=== PATIENT | female | born 1980 | race Caucasian/White ===

== ENCOUNTER 2018-10-25 11:22 | Outpatient (REF) | payer BC, SELFPAY ==
[2018-10-25 21:21] LABS: Abs Immature Grans 0.01 k/cumm (0.0-0.09); Absolute Basophil Count 0.03 k/cumm (0.0-0.2); Absolute Lymphocyte Count 1.65 k/cumm (1.2-3.4); Absolute Monocyte Count 0.65 k/cumm (0.11-0.7); Absolute Neutrophil Count 4.69 k/cumm (1.2-6.7); Basophils % 0.4; Eosinophils % 1.4; HCT 40.5 % (36.0-46.0); HGB 13.5 g/dL (12.0-15.5); Immature Grans % 0.1; Lymphocytes % 23.1; Mean Corp. HGB Concentration 33.3 g/dL (32.0-36.0); Mean Corpuscular Hemoglobin 31.5 pg (27.0-33.0); Mean Corpuscular Volume 94.4 fL (80-95); Mean Platelet Volume 13.7 fL (8.0-11.0); Monocytes % 9.1; Neutrophils % 65.9; Platelet Count 148 x1000/uL (130-400); RBC 4.29 m/cumm (4.00-5.20); White Blood Cell Count 7.13 k/cumm (4.4-10.8)
[2018-10-25 21:32] LABS: Iron 134 ug/dL (50-175); Total Iron Binding Capacity 362 ug/dL (250-450); Transferrin Sat 37 % (15-50)
[2018-10-25 21:58] LABS: ALT 16 U/L (12-78); AST 13 U/L (15-37); Albumin 4.1 g/dL (3.4-5.0); Alkaline Phosphatase 69 U/L (46-116); Anion Gap 8.9 mmol/L (3-11); BUN 16 mg/dL (7-18); Bilirubin, Total 0.4 mg/dL (0.2-1.0); CO2 27.1 mmol/L (21.0-32.0); CREATININE 0.98 mg/dL (0.55-1.02); Calcium 9.3 mg/dL (8.5-10.1); Chloride 104 mmol/L (98-107); Ferritin 41 ng/mL (8-388); Glucose 101 mg/dL (70-100); Potassium 4.2 mmol/L (3.5-5.1); Sodium 140 mmol/L (136-145); TSH (W/Ref FT4) 4.47 uIU/mL (0.358-3.74); Total Protein 7.7 g/dL (6.4-8.2)
[2018-10-25 22:19] LABS: C-Reactive Protein 0.08 mg/dL (0.0-0.3); FREE T4 1.06 ng/dL (0.76-1.46)
[2018-10-25 22:21] LABS: ESR 9 MM/HR (0-20)
[2018-10-27 13:05] LABS: Levetiracetam 27.1 mcg/mL
== END 2018-10-25 11:42 ==
LOC: NCHCN 11:22
PROVIDERS: PCP Obstetrics & Gynecology; Visit Provider Nurse Practitioner
DX: R10.33 Periumbilical pain (principal); E03.9 Hypothyroidism, unspecified; Z51.81 Encounter for therapeutic drug level monitoring; M53.3 Sacrococcygeal disorders, not elsewhere classified
CPT/HCPCS: 80053; 85652; 80177; 82728; 83540; 83550; 84439; 84443; 85025; 86140; 87086

== ENCOUNTER 2018-10-29 01:42 | Outpatient (CLI) | payer BC, SELFPAY ==
--- NOTE | 2018-10-29 08:45 | DI.US_ITS ---
SYMPTOM/DIAGNOSIS: PERIUMBILICAL ABD PAIN, R10.33 ABDOMEN ULTRASOUND: The liver is normal in size and echogenicity. No biliary dilatation is seen. The gallbladder has a normal appearance, without evidence of stones or wall thickening. The spleen, kidneys, pancreas and aorta are unremarkable. There is no ascites. IMPRESSION: Negative abdomen ultrasound.
== END 2018-10-29 02:02 ==
PROVIDERS: PCP Obstetrics & Gynecology; Visit Provider Nurse Practitioner
DX: R10.33 Periumbilical pain (principal)
CPT/HCPCS: 76700

== ENCOUNTER 2018-11-30 11:19 | Outpatient (REF) | payer BC, SELFPAY ==
[2018-11-30 21:20] LABS: Cholesterol 200 mg/dL (50-200); HDL Cholesterol 65 mg/dL (40-60); LDL CHOLESTEROL 116 mg/dL (<100); Triglyceride 79 mg/dL (30-150)
== END 2018-11-30 11:39 ==
LOC: NCHCN 11:19
PROVIDERS: PCP Obstetrics & Gynecology; Visit Provider Nurse Practitioner Family
DX: R51 Headache (principal); L98.9 Disorder of the skin and subcutaneous tissue, unspecified; M53.3 Sacrococcygeal disorders, not elsewhere classified; N92.6 Irregular menstruation, unspecified; F32.9 Major depressive disorder, single episode, unspecified; E03.9 Hypothyroidism, unspecified; G40.909 Epilepsy, unspecified, not intractable, without status epilepticus; Z00.00 Encounter for general adult medical examination without abnormal findings
CPT/HCPCS: 80061; 83721; 84443

== ENCOUNTER 2020-11-18 02:07 | Outpatient (CLI) | payer BC, SELFPAY ==
--- NOTE | 2020-11-18 13:26 | DI.RAD_ITS ---
EXAM: XR FOOT LT COMPLETE CLINICAL HISTORY: LT FOOT PAIN, M79.672. TECHNIQUE: 2D digital imaging was performed. COMPARISON: No exams were available for comparison FINDINGS: BONES: No acute fracture is present. No bony destructive lesion is seen. JOINTS: No dislocation present. SOFT TISSUE: Normal. IMPRESSION: Unremarkable radiographs of the left foot. DATA REPOSITORY: RADIATION DOSE DELIVERED:
== END 2020-11-18 02:08 | disposition home or self-care (01) ==
LOC: DI 02:07
PROVIDERS: PCP Obstetrics & Gynecology; Visit Provider Nurse Practitioner Family
DX: M79.672 Pain in left foot (principal)
CPT/HCPCS: 73630

== ENCOUNTER 2020-11-30 15:40 | Outpatient (REF) | payer BC, SELFPAY ==
[2020-11-30 21:15] LABS: TSH (W/Ref FT4) 3.45 uIU/mL (0.36-3.74)
[2020-12-03 10:05] LABS: Levetiracetam 16.1 mcg/mL
== END 2020-11-30 15:41 | disposition home or self-care (01) ==
LOC: NCHCN 15:40
PROVIDERS: PCP Obstetrics & Gynecology; Visit Provider Nurse Practitioner Family
DX: E03.9 Hypothyroidism, unspecified (principal); F32.9 Major depressive disorder, single episode, unspecified; Z51.81 Encounter for therapeutic drug level monitoring; R51.9 Headache, unspecified; Z00.00 Encounter for general adult medical examination without abnormal findings; G40.909 Epilepsy, unspecified, not intractable, without status epilepticus
CPT/HCPCS: 80177; 80178; 84443

== ENCOUNTER 2021-01-20 22:17 | Outpatient (REF) | payer BC, SELFPAY ==
[2021-01-22 16:33] LABS: COVID-19 RT-PCR UVMMC Result Negative (Negative)
== END 2021-01-20 22:18 | disposition home or self-care (01) ==
LOC: NCHCN 22:17
PROVIDERS: PCP Obstetrics & Gynecology; Visit Provider Nurse Practitioner Family
DX: Z20.822 Contact with and (suspected) exposure to COVID-19 (principal)
CPT/HCPCS: U0003

== ENCOUNTER 2021-10-07 17:39 | Outpatient (REF) | payer BC, SELFPAY ==
[2021-10-07 21:43] LABS: Abs Immature Grans 0.01 10^3/uL (0.0-0.06); Absolute Basophil Count 0.05 10^3/uL (0.0-0.2); Absolute Monocyte Count 0.42 10^3/uL (0.1-0.8); Absolute Neutrophil Count 3.67 10^3/uL (1.2-6.7); Basophils % 0.9; Eosinophils % 1.7; HCT 41.5 % (36.0-46.0); HGB 13.6 g/dL (11.2-15.7); Immature Grans % 0.2; Lymphocytes % 27.4; MCH 31.1 pg (27.0-33.0); MCHC 32.8 % (32.0-36.0); MCV 94.7 fL (80-95); Monocytes % 7.2; Neutrophils % 62.6; Nucleated RBC 0 %; Platelet Count 191 10^3/uL (130-400); RBC 4.38 10^6/uL (3.93-5.22); RDW 11.9 % (11.7-14.6); RDW-SD 41.1 fL; WBC 5.85 10^3/uL (4.4-10.8)
[2021-10-07 21:48] LABS: Iron 96 ug/dL (50-170); Total Iron Binding Capacity 363 ug/dL (250-450); Transferrin Sat 26 % (15-50)
[2021-10-07 22:14] LABS: Anion Gap 8.5 mmol/L (3-11); BUN 14 mg/dL (7-18); CO2 30.5 mmol/L (21.0-32.0); Calcium 9.3 mg/dL (8.5-10.1); Chloride 102 mmol/L (98-107); Ferritin 43 ng/mL (8-252); Glucose 120 mg/dL (74-106); Potassium 3.6 mmol/L (3.5-5.1); Sodium 141 mmol/L (136-145); TSH (W/Ref FT4) 1.58 uIU/mL (0.36-3.74); Vitamin B12 933 pg/mL (193-986)
== END 2021-10-07 17:40 | disposition home or self-care (01) ==
LOC: NCHCN 17:39
PROVIDERS: PCP Obstetrics & Gynecology; Visit Provider Nurse Practitioner Family
DX: R53.83 Other fatigue (principal)
CPT/HCPCS: 80048; 82607; 82728; 83540; 83550; 84443; 85025

== ENCOUNTER 2021-12-06 11:57 | Outpatient (REF) | payer BC, SELFPAY ==
--- NOTE | 2021-12-06 11:00 | PAPFT_PTH ---
PATIENT: Zenaida Loo LOC: [facility]#:[id number] AGE/SX: 41/F ROOM: RE12/06/[address]: Angella Mcdonough : 1980 BED: DIS: 12/06/2021 SPEC #: [id number] RECD: 12/06/21 17:28 STATUS: INDRA REJohn #: [id number] AMANDA: 12/06/21 11:[address]: Angella Mcdonough DEPT: [facility] Cytology RECD BY: Lauren Mcfadden ENTERED: 12/06/21 17:29 SP TYPE: PAPFT LEXA DR: Tanisha Gates Tissues: 1 - CX/ENDOCX FOR PAP SMEARS Procedures: PAP THIN PREP/[facility] Screening HPV DNA PROBE Comments: [id number]
[2021-12-08 12:09] LABS: Levetiracetam 30.2 mcg/mL
== END 2021-12-06 11:58 | disposition home or self-care (01) ==
LOC: NCHCN 11:57
PROVIDERS: PCP Obstetrics & Gynecology; Visit Provider Nurse Practitioner Family
DX: Z00.00 Encounter for general adult medical examination without abnormal findings (principal); E03.9 Hypothyroidism, unspecified; R53.83 Other fatigue; F32.9 Major depressive disorder, single episode, unspecified; K30 Functional dyspepsia; G40.909 Epilepsy, unspecified, not intractable, without status epilepticus; Z12.4 Encounter for screening for malignant neoplasm of cervix; Z11.51 Encounter for screening for human papillomavirus (HPV)
CPT/HCPCS: 88142; 80177; 87624

== ENCOUNTER 2022-10-27 04:06 | Outpatient (CLI) | payer BC, SELFPAY ==
[2022-10-27 13:53] LABS: TSH (W/Ref FT4) 3.73 uIU/mL (0.36-3.74)
[2022-10-28 23:06] LABS: Almond IgE <0.35 kU/L; Brazil Nut IgE <0.35 kU/L; Cashew IgE <0.35 kU/L; Walnut-Food IgE <0.35 kU/L
[2022-10-29 11:26] LABS: Levetiracetam 25.4 mcg/mL
== END 2022-10-27 04:07 | disposition home or self-care (01) ==
LOC: LBO 04:06
PROVIDERS: Physician Assistant; PCP Nurse Practitioner Family; Visit Provider Nurse Practitioner Family
DX: R53.83 Other fatigue (principal); R51.9 Headache, unspecified; F32.89 Other specified depressive episodes; E03.9 Hypothyroidism, unspecified; G40.909 Epilepsy, unspecified, not intractable, without status epilepticus; Z51.81 Encounter for therapeutic drug level monitoring; Z79.899 Other long term (current) drug therapy; Z91.018 Allergy to other foods
CPT/HCPCS: 36415; 86003; 80177; 84443

== ENCOUNTER 2023-01-20 15:44 | Outpatient (REF) | payer BC, SELFPAY ==
[2023-01-21 11:33] LABS: Campylobacter PCR Negative (Negative); Salmonella PCR Negative (Negative); Shiga Toxin PCR Negative (Negative); Shigella/Enteroinvasive Ecoli Negative (Negative)
== END 2023-01-20 15:45 | disposition home or self-care (01) ==
LOC: NCHCN 15:44
PROVIDERS: PCP Nurse Practitioner Family; Visit Provider Nurse Practitioner Family
DX: R19.7 Diarrhea, unspecified (principal)
CPT/HCPCS: 87505

== ENCOUNTER 2023-02-03 15:25 | Outpatient (REF) | payer BC, SELFPAY | END 2023-02-03 15:26 | disposition home or self-care (01) | LOC: LBN 15:25 | PROVIDERS: PCP Nurse Practitioner Family; Visit Provider Physician Assistant Medical | DX: H60.91 Unspecified otitis externa, right ear (principal) | CPT/HCPCS: 87077; 87107; 87070; 87186 ==

== ENCOUNTER 2023-11-13 15:12 | Outpatient (REF) | payer BC, SELFPAY ==
[2023-11-13 15:42] LABS: TSH (W/Ref FT4) 1.68 uIU/mL (0.36-3.74)
== END 2023-11-13 15:13 | disposition home or self-care (01) ==
LOC: NCHCN 15:12
PROVIDERS: PCP Nurse Practitioner Family; Visit Provider Nurse Practitioner Family
DX: E03.9 Hypothyroidism, unspecified (principal)
CPT/HCPCS: 84443

== ENCOUNTER → 2023-11-28 01:30 | Outpatient (CLI) | payer BC, SELFPAY ==
--- NOTE | 2023-11-28 | DI.MAMMO_ITS ---
Exam(s) MAMMO SCREENING EXAM: MAMMO SCREENING CLINICAL HISTORY: SCREENING,Z12.31 TECHNIQUE: Bilateral full field digital CC and MLO mammographic images were obtained with 3D tomosyn thesis and utilizing computer aided detection (CAD). COMPARISON: This is a baseline examination. FINDINGS: Masses/Architectural Distortion: None seen. Microcalcifications: No suspicious pleomorphic-type are seen. Skin Thickening/Nipple Retraction: None. IMPRESSION: 1. No significant interval change with no specific features of malignancy noted. 2. Unless there is more urgent need, screening mammography is recommended, as per [employer] guidelines. BI-RADS Category 1 - Negative Breast Density - Category C - Heterogeneously dense Breast density category C or D implies that the patient has dense breast tissue. Dense breast tissue is very common and is not abnormal but dense breast tissue can make it harder to find cancer on a ma mmogram. Also, dense breast tissue may increase their breast cancer risk. This information about the result of the mammogram report was provided to the patient to raise their awareness. Use this report when you speak with the patient about their risks for breast cancer, which includes their family hist ory. At that time, you may recommend for more screening tests (Ultrasound or MRI) as they might be us eful based on their risk. A negative radiographic report should not delay biopsy if a dominant or clinically suspicious mass is present. Up to ten percent of cancers are not identified on mammography. A negative report may reinforce clinical impression. Adenosis and dense breasts may obscure an underlying neoplasm. False positive reports average 6 to 10%. Patient will receive a letter notifying them of these results.
== END ==
PROVIDERS: PCP Nurse Practitioner Family; Visit Provider Nurse Practitioner Family
DX: Z12.31 Encounter for screening mammogram for malignant neoplasm of breast (principal)
CPT/HCPCS: 77063; 77067

== ENCOUNTER 2024-04-08 15:29 | Outpatient (CLI) | payer BC, SELFPAY ==
--- NOTE | 2024-04-08 15:15 | DI.RAD_ITS ---
Exam(s) XR WRIST LT COMPLETE EXAM: XR WRIST LT COMPLETE CLINICAL HISTORY: BILATERAL WRIST PAIN. TECHNIQUE: 2D digital imaging was performed of the left wrist. Three images were obtained. PA, obl ique and lateral views were obtained. COMPARISON: No exams were available for comparison FINDINGS: BONES: No acute fracture is present. No bony destructive lesion is seen. JOINTS: The carpal bones are normally aligned. SOFT TISSUE: Normal. IMPRESSION: Unremarkable radiographs of the left wrist. DATA REPOSITORY: RADIATION DOSE DELIVERED:
--- NOTE | 2024-04-08 15:15 | DI.RAD_ITS ---
Exam(s) XR WRIST RT COMPLETE EXAM: XR WRIST RT COMPLETE CLINICAL HISTORY: BILATERAL WRIST PAIN. TECHNIQUE: 2D digital imaging was performed of the right wrist. Three views were obtained. PA, lat eral and oblique views were obtained. COMPARISON: No exams were available for comparison FINDINGS: BONES: No acute fracture is present. No bony destructive lesion is seen. JOINTS: The carpal bones are normally aligned. SOFT TISSUE: Normal. IMPRESSION: Unremarkable radiographs of the right wrist. DATA REPOSITORY: RADIATION DOSE DELIVERED:
== END 2024-04-08 15:30 | disposition home or self-care (01) ==
LOC: DIORS 15:29
PROVIDERS: PCP Nurse Practitioner Family; Referring Provider Nurse Practitioner Family; Visit Provider Student in an Organized Health Care Education/Training Program
DX: M25.531 Pain in right wrist (principal); M25.532 Pain in left wrist
CPT/HCPCS: 73110

== ENCOUNTER 2024-07-12 07:11 | Day surgery (SDC) | payer BC, SELFPAY ==
[2024-07-12 07:37] VITALS: BP 102/67; PULSE 111; RESP 18; TEMP 36.5; O2SAT 100
[2024-07-12] MEDS: Lactated Ringers 1,000 ML 80 ML IV (07:54)
--- NOTE | 2024-07-12 08:18 | W.ANESPRE ---
General Info Date of Service Date Performed: 07/12/24 Height: 5 ft 4 in Weight: 68.8 kg Body Mass Index (BMI): 26.0 Surgical Procedure: Operation Date: 07/12/24 08:35 Proposed Procedure Side Surgeon p Colonoscopy Nancy CORMIER MD Actual Procedure Side Surgeon p Colonoscopy Not Applicable Nancy CORMIER MD Pre-Op Diagnosis Post-Op Diagnosis Screening/Average Risk Colonoscopy Meds Allergies and Home Medications Allergies Allergy/AdvReac Type Severity Reaction Status Date / Time No Known Allergies Allergy Verified 07/12/24 07:33 Home Medication ?Medication ?Instructions ?Recorded levetiracetam 750 mg tablet 750 mg PO BID 03/26/14 (Keppra) levothyroxine 50 mcg tablet 88 mcg PO DAILY 06/13/24 bisacodyl 5 mg tablet,delayed 5 mg PO ONCE Colonoscopy Bowel 07/05/24 release Prep #4 tabs polyethylene glycol 3350 17 238 g PO ONCE #238 grams 07/05/24 gram/dose oral powder Current Visit Medications: Current Medications Generic Name Dose Route Start Last Admin Trade Name Lopez PRN Reason Stop Dose Admin Ringer's Solution 1,000 mls @ 80 mls/hr 07/12/24 06:00 07/12/24 07:54 IV 07/12/24 23:59 80 mls/hr INFUSION JEAN PIERRE Administration IV Miscellaneous Supplies 1 each 07/12/24 06:00 Iv Access IV 07/12/24 23:59 DIRECTED JEAN PIERRE Sodium Chloride 0 ml 07/12/24 06:00 Normal Saline Flush 10 Ml Syr IV 07/12/24 23:59 PRN PRN Sodium Chloride 0 ml 07/12/24 06:00 Normal Saline 10 Ml Vial IJ 07/12/24 23:59 DIRECTED PRN Sterile Water 0 ml 07/12/24 06:00 Water,Injection,Sterile 10 Ml Vial IJ 07/12/24 23:59 DIRECTED PRN PFSH Active Problems Active Problems: Problem Status Onset Code 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 tonsillectomy age 20 b. wisdom tooth extraction Tobacco Smoking/Tobacco Use Status: Never Alcohol Alcohol Intake: current Alcohol intake frequency: a few times a week Substance Use Substance use: Never Substance use type: does not use Vital Signs and Lab Results Vital Signs Most Recent Vital Signs in EMR: Most Recent Vital Signs Temp Pulse Resp BP Pulse Ox 36.5 C 111 H 18 102/67 100 07/12/24 07:37 07/12/24 07:37 07/12/24 07:37 07/12/24 07:37 07/12/24 07:37 Point of Care Results Point of Care Results: Negative Urine Lab Results Blood Type / Crossmatch: No Data to Display Complete Blood Count: No Data to Display Complete Metabolic Panel: No Data to Display Liver Function Panel: No Data to Display Coagulation Panel: No Data to Display Cardiac Panel: No Data to Display Arterial Blood Gas: No Data to Display Venous Blood Gas: No Data to Display Pancreas Panel: No Data to Display Thyroid Panel: No Data to Display Infectious Disease: No Data to Display Blood Cultures: No Data to Display Toxicology Panel: No Data to Display Panel: No Data to Display Anesthesia Assessment and Plan Anesthesia History Personal History: No History of Anesthesia Complications Family History: No Family History of Anesthesia Complications Exercise Tolerance Exercise Tolerance: Metabolic Equivalents>4 Pertinent Negatives Pertinent Negatives: No Symptoms of GERD, No Major Cardiovascular Symptoms or Complaints and No Major Pulmonary Symptoms or Complaints Cardiac & Pulmonary Exam Cardiac Exam: Normal S1/S2 Heart Sounds Pulmonary Exam: Clear Bilateral Breath Sounds Implantable Cardiac Device Does patient have a Pacemaker or an ICD?: No Airway Exam Known Difficult Airway: No Mallampati Class: 2 Mouth Opening: Normal (> 3cm) Thyromental Distance: Greater than 3 cm Neck Range of Motion: Full ROM Neck Circumference: Normal Teeth Condition: Normal Dentition ASA Classification ASA Score: ASA 2 Emergency Case?: No NPO Status NPO Status: NPO Clears >2 hours, Solids >8 hours Status Status: Negative HCG Anesthesia Plan Resuscitation Status: Full Code Anesthesia Technique: General Anesthesia Airway Planned: Natural Airway Monitors Used: Standard Monitors
[2024-07-12 08:19] VITALS: BMI 26.0
[2024-07-12 08:56] VITALS: BP 103/68; PULSE 91; RESP 16; TEMP 36.4; O2SAT 100
--- NOTE | 2024-07-12 08:56 | ROE_ITS ---
Date of service: 07/12/24 Time of Service: 08:56 Operative Note Operative Note PRE-OP DIAGNOSIS: Colon cancer screening POST-OP DIAGNOSIS: same Colon polyp SURGEON: Nancy CORMIER ANESTHESIA TYPE: MAC Refer to Anesthesia Record PATHOLOGY: other (Ascending colon polyp) COMPLICATIONS: None Patient was transported to: PACU Patient's condition: stable Findings: 1 subcentimeter polyp Procedure Description: After obtaining informed consent, patient was brought back to the operating room. She was turned in the left side and connected to the monitors. Timeout was performed. Propofol was administered by the nurse bulk truck driver. I began by performing a digital rectal exam. This was unremarkable. I inserted the colonoscope and advanced the length of the colon. I attained the cecum as identified by the appendiceal orifice and the ileocecal valve. I intubated the terminal ileum. This had a normal appearance. I withdrew into the cecum. Her prep was good. The cecum had a normal appearance. I withdrew along the descending colon and found a 5 mm sessile polyp. I remove the polyp with the hot snare. This was retrieved with suction and sent to pathology. I withdrew along the transverse colon, descending colon, sigmoid colon. No mucosal abnormalities were noted. No diverticula were noted. I withdrew into the rectum. I did retroflex. This was unremarkable. I decompressed the sigmoid and the rectum and withdrew the scope entirely. Patient tolerated well. She went to recovery in stable condition. Disposition: Patient will be discharged home later today. We will call her with the pathology report. She will likely need a repeat colonoscopy in 5 to 7 years, pending pathology.
--- NOTE | 2024-07-12 09:09 | W.ANESPOSTOP ---
Postoperative Evaluation Date, Time and Location Date Performed: 07/12/24 Time Performed: 09:09 Patient Location: Day Surgery Unit Vital Signs Most Recent Imported Vital Signs: Most Recent Vital Signs Temp Pulse Resp BP Pulse Ox 36.4 C L 91 H 16 103/68 100 07/12/24 08:56 07/12/24 08:56 07/12/24 08:56 07/12/24 08:56 07/12/24 08:56 Pain Score Most Recent Pain Score: Most Recent Pain Score Pain Level 0 07/12/24 08:56 Assessment Mental Status: Awake (Alert & Oriented to Patient Baseline) Airway and Respiratory Function: Patent airway with normal (patient baseline) respiratory exam Cardiovascular Function: Hemodynamically Stable Hydration Status: Adequately Hydrated Nausea & Vomiting: No Nausea or Vomiting Pain: Pt. Denies Any Pain Peripheral Nerve Block: Patient did not receive a nerve block
[2024-07-12 09:26] VITALS: BP 104/60; PULSE 77; RESP 16; TEMP 36.6; O2SAT 100
== END 2024-07-12 09:32 | disposition home or self-care (01) ==
PROVIDERS: PCP Nurse Practitioner Family; Visit Provider Surgery
PROC: 0DJD8ZZ Inspection of Lower Intestinal Tract, Via Natural or Artificial Opening Endoscopic (ICD-10-PCS; CPT 45378; principal; 2024-07-12 08:30)
DX: Z12.11 Encounter for screening for malignant neoplasm of colon (principal); K63.89 Other specified diseases of intestine
CPT/HCPCS: 45385; 00123; 81025; 88305; J2704

== ENCOUNTER 2024-11-28 09:51 | Outpatient (REF) | payer BC, SELFPAY ==
[2024-11-28 23:28] LABS: Calculated LDL 137 mg/dL (<100); Cholesterol 216 mg/dL (<200); HDL Cholesterol 62 mg/dL (40-60); TSH (W/Ref FT4) 2.05 uIU/mL (0.36-3.74); Triglyceride 88 mg/dL (<150)
== END 2024-11-28 09:52 | disposition home or self-care (01) ==
LOC: NCHCN 09:51
PROVIDERS: PCP Nurse Practitioner Family; Visit Provider Nurse Practitioner Family
DX: G40.909 Epilepsy, unspecified, not intractable, without status epilepticus (principal); E03.9 Hypothyroidism, unspecified; Z13.220 Encounter for screening for lipoid disorders
CPT/HCPCS: 80061; 80177; 84443

== ENCOUNTER 2024-12-19 01:44 | Outpatient (CLI) | payer BC, SELFPAY ==
--- NOTE | 2024-12-19 14:16 | DI.MAMMO_ITS ---
Exam(s) MAMMO SCREENING EXAM: MAMMO SCREENING CLINICAL HISTORY: Z12.31 Screening. TECHNIQUE: Bilateral full field digital CC and MLO mammographic images were obtained with 3D tomosyn thesis and utilizing computer aided detection (CAD). COMPARISON: Prior baseline mammogram of November 2023 was reviewed.. FINDINGS: The fibroglandular tissue is again noted be dense, this somewhat decreasing the sensitivity of the ma mmogram for finding hidden underlying lesions. There are no CAD designations. No new right breast findings. In the left breast there is a anteriorly located 6 o'clock position well-defined oval noncalcified no dule measuring 4 x 3 mm. There are no malignant-appearing microcalcification groups is region or els ewhere in either breast. There is no significant architectural distortion nor skin thickening-retraction. IMPRESSION: 1. No radiographic evidence of malignancy in the right breast. 2. There is a small 4 x 3 mm nodule in the anterior aspect of the left breast, approximately 6 o'cloc k position. Spot compression view and ultrasound recommended BI-RADS Category 0 - Incomplete: Need additional imaging evaluation Breast Density - Category C - Heterogeneously dense Breast density Category C or D implies that the patient has dense breast tissue. Dense breast tissue can make it harder to find cancer on a mammogram. Dense breast tissue is also associated with an incr eased risk of breast cancer. This information about the result of the mammogram report was provided to the patient to raise their awareness. Use this report when you speak with the patient about their risks for breast cancer, which includes their family history. At that time, you may recommend additional screening tests (Ultrasoun d or MRI) as these tests may add significant information. A negative radiographic report should not delay biopsy if a dominant or clinically suspicious mass is present. Up to ten percent of cancers are not identified on mammography. A negative report may reinforce clinical impression. Adenosis and dense breasts may obscure an underlying neoplasm. False positive reports average 6 to 10%. Patient will receive a letter notifying them of these results.
== END 2024-12-19 02:04 ==
LOC: DI 01:44
PROVIDERS: PCP Nurse Practitioner Family; Visit Provider Nurse Practitioner Family
DX: Z12.31 Encounter for screening mammogram for malignant neoplasm of breast (principal); R92.333 Mammographic heterogeneous density, bilateral breasts
CPT/HCPCS: 77063; 77067

== ENCOUNTER 2024-12-25 03:27 | Outpatient (CLI) | payer BC, SELFPAY ==
--- NOTE | 2024-12-25 | DI.US_ITS ---
Exam(s) MG MAMMO SCREEN CALL BACK UNI US BREAST LT LIMITED EXAM: MG MAMMO SCREEN CALL BACK UNI and U/S breast LT limited CLINICAL HISTORY: F/U ABNL MAMMO, SMALL NODULE ANTERIOR ASPECT LT BREAST, R92.8. TECHNIQUE: Craniocaudal and mediolateral oblique Full Field Digital Mammography views of the left br east with Computer Aided Diagnosis followed by Tomosynthesis and limited left breast ultrasound. COMPARISON: Comparison is made with prior examinations. FINDINGS: Mammography/Tomosynthesis: Masses/Architectural Distortion: There is a persistent well-circumscribed small 4 mm nodule in the in ferior left breast. No areas of architectural distortion are present. Microcalcifictions: No suspicious pleomorphic-type are seen. Skin Thickening/Nipple Retraction: None. Limited left breast US: Echotexture: Normal appearance of the glandular tissue. Shadowing: No suspicious foci. Cyst: There is a 0.3 cm simple cyst at the 6 o'clock position of the left breast 2 cm from the nipple . This likely corresponds to the mammographic abnormality. There is also a 0.3 cm simple cyst at th e 3 o'clock position of the left breast 2 cm from the nipple. Solid lesions: None seen. Ductal dilation: None. IMPRESSION: 1. No evidence of malignancy is noted. 2. Unless there is more urgent need, follow-up screening mammography is recommended, as per [place] [employer] guidelines. 3. The findings were discussed with the patient on the date of the examination. BI-RADS Category 2 - Benign Findings Breast Density - Category C - Heterogeneously dense Breast density Category C or D implies that the patient has dense breast tissue. Dense breast tissue can make it harder to find cancer on a mammogram. Dense breast tissue is also associated with an incr eased risk of breast cancer. This information about the result of the mammogram report was provided to the patient to raise their awareness. Use this report when you speak with the patient about their risks for breast cancer, which includes their family history. At that time, you may recommend additional screening tests (Ultrasoun d or MRI) as these tests may add significant information. A negative radiographic report should not delay biopsy if a dominant or clinically suspicious mass is present. Up to ten percent of cancers are not identified on mammography. A negative report may reinforce clinical impression. Adenosis and dense breasts may obscure an underlying neoplasm. False positive reports average 6 to 10%. Patient will receive a letter notifying them of these results.
== END 2024-12-25 03:47 ==
LOC: DI 03:28
PROVIDERS: PCP Nurse Practitioner Family; Visit Provider Nurse Practitioner Family
DX: Z12.31 Encounter for screening mammogram for malignant neoplasm of breast (principal); R92.8 Other abnormal and inconclusive findings on diagnostic imaging of breast; R92.333 Mammographic heterogeneous density, bilateral breasts; D24.2 Benign neoplasm of left breast
CPT/HCPCS: 76642; 77063; 77067